=== PATIENT | female | born 1950 | race Caucasian/White ===

== ENCOUNTER 2023-08-02 06:42 | Emergency (ER) | payer MEDICARE, MEDICAID ==
[~2023-08-02] VITALS: Ht 162.6 cm; Wt 59.0 kg
[2023-08-02 06:50] VITALS: O2SAT 99
[2023-08-02] MEDS ORDERED: MECLIZINE 25MG TABLET PO ONE (07:15)
[2023-08-02 07:17] LABS: CHLORIDE 105 mEq/L (98-107); POTASSIUM 3.9 mEq/L (3.5-5.1); SODIUM 137 mEq/L (136-145)
[2023-08-02 07:18] LABS: CALCIUM 9.5 mg/dL (8.7-10.4); CARBON DIOXIDE 27 mEq/L (21-32)
[2023-08-02 07:23] LABS: CREATININE 0.7 mg/dL (0.6-1.0); GLUCOSE 115 mg/dL (70-105); UREA NITROGEN BLOOD 9 mg/dL (9-23)
[2023-08-02 07:27] LABS: BASOPHILS % 0.9 % (0.0-2.0); HEMATOCRIT. 37.2 % (36.0-48.0); HEMOGLOBIN. 13.3 g/dL (12.0-16.0); LYMPHOCYTES % 27.7 % (20.0-50.0); MEAN CORPUSCULAR HEMOGLOBIN 33.7 pg (28.0-32.0); MEAN CORPUSCULAR HGB CONC 35.7 g/dL (31.0-37.0); MEAN CORPUSCULAR VOLUME 94.4 fL (81.0-99.0); MEAN PLATELET VOLUME 8.6 fl (7.4-10.4); MONOCYTES % 8.7 % (2.0-8.0); NEUTROPHILS % 61.7 % (40.0-76.0); PLATELET 170 x1000/uL (130-400); RED BLOOD CELL COUNT 3.94 mill/uL (4.2-5.4); RED CELL DISTRIBUTION WIDTH 12.3 % (11.6-14.6); WHITE BLOOD COUNT 4.5 x1000/uL (4.5-11.0)
[2023-08-02] MEDS: DIAZEPAM 5 MG/ML 2ML SYR IV ONE (07:40)
[2023-08-02] MEDS: MECLIZINE 12.5MG TABLET PO NR (07:40)
[2023-08-02 07:42] LABS: TROPONIN I HIGH SENSITIVITY < 4 ng/L (3.0-34)
[2023-08-02] MEDS ORDERED: MECL-299 MT (08:41)
[2023-08-02 09:19] VITALS: BP 122/56; PULSE 58; RESP 12; TEMP 98.1
== END 2023-08-02 09:33 | disposition home or self-care (01) ==
LOC: ER 06:50 → CANBEDREQ 08-04 08:42
DX: R42 Dizziness and giddiness (principal); F41.9 Anxiety disorder, unspecified
CPT/HCPCS: 99285; 96374; 71045; 80048; 83880; 85025; 84484; 36415; 93005; J8597